=== PATIENT | female | born 1980 | race Caucasian/White ===

== ENCOUNTER 2025-01-28 06:59 | Day surgery (SDC) | payer OTHER, SELFPAY ==
[2025-01-12 15:00] VITALS: BMI 26.5
--- OUTSIDE RECORDS SUMMARY | 2025-01-28 07:33 | XMS_ITS | Encounter Summary ---
Author Organization [facility] Address [address] [place] [address] Care Team Providers Care Job Printer Apprentice Name Role Phone Isidro Swan MD Primary Care Provider [phone] Encounter Details Date Type Department Care Team (Late st Contact Info) Description 02/06/2003 [facility] [address] [place] [phone] Isaías Nj DO NO ADDRESS ON FILE Social History Tobacco Use Types Packs/Day Years Used Date Smoking Tobacco: Never Assessed Comments Unknown Sex and Gender Information Value Date Recorded Sex Assigned at Not on file Legal Sex Female 7:43 AM LICENSING WORKER Gender Identity Not on file Sexual Orientation Not on file documented as of this encounter Plan of Treatment Not on file documented as of this encounter Visit Diagnoses Not on filedocumented in this encounter Additional Health Concerns Infection Onset Date Last Indicated Resolved Time R/O COVID-19 11/30/2019 11/30/2019 03/20/2020 11:3 7 AM LICENSING WORKER documented as of this encounter Care Teams Job Printer Apprentice Relationship Specialty Start Date End Date Isidro Swan MD [address] [place] [address] [phone] PCP - General Family Practice 02/17/19 documented as of this encounter
--- OUTSIDE RECORDS SUMMARY | 2025-01-28 07:33 | XMS_ITS | Encounter Summary ---
Author Organization [facility] Address [address] [place] [address] Care Team Providers Care Mold Puller Name Role Phone Isidro Swan MD Primary Care Provider [phone] Encounter Details Date Type Department Care Team (Late st Contact Info) Description 12/01/2002 [facility] [address] [place] [address] [phone] Isaías Nj DO NO ADDRESS ON FILE Social History Tobacco Use Types Packs/Day Years Used Date Smoking Tobacco: Never Assessed Comments Unknown Sex and Gender Information Value Date Recorded Sex Assigned at Not on file Legal Sex Female 7:43 AM DAIRY SCIENCE TEACHER Gender Identity Not on file Sexual Orientation Not on file documented as of this encounter Plan of Treatment Not on file documented as of this encounter Visit Diagnoses Not on filedocumented in this encounter Additional Health Concerns Infection Onset Date Last Indicated Resolved Time R/O COVID-19 11/30/2019 11/30/2019 03/20/2020 11:3 7 AM DAIRY SCIENCE TEACHER documented as of this encounter Care Teams Mold Puller Relationship Specialty Start Date End Date Isidro Swan MD [address] [place] [address] [phone] PCP - General Family Practice 02/17/19 documented as of this encounter
--- OUTSIDE RECORDS SUMMARY | 2025-01-28 07:33 | XMS_ITS | Encounter Summary ---
Author Organization [facility] Address [address] [place] [address] Care Team Providers Care Asian Studies Professor Name Role Phone Isidro Swan MD Primary Care Provider [phone] Encounter Details Date Type Department Care Team (Late st Contact Info) Description 05/02/2002 [facility] [address] [place] [address] [phone] Isaías Nj DO NO ADDRESS ON FILE Social History Tobacco Use Types Packs/Day Years Used Date Smoking Tobacco: Never Assessed Comments Unknown Sex and Gender Information Value Date Recorded Sex Assigned at Not on file Legal Sex Female 7:43 AM HOSPICE CLINICAL MARKETER Gender Identity Not on file Sexual Orientation Not on file documented as of this encounter Plan of Treatment Not on file documented as of this encounter Visit Diagnoses Not on filedocumented in this encounter Additional Health Concerns Infection Onset Date Last Indicated Resolved Time R/O COVID-19 11/30/2019 11/30/2019 03/20/2020 11:3 7 AM HOSPICE CLINICAL MARKETER documented as of this encounter Care Teams Asian Studies Professor Relationship Specialty Start Date End Date Isidro Swan MD [address] [place] [address] [phone] PCP - General Family Practice 02/17/19 documented as of this encounter
--- OUTSIDE RECORDS SUMMARY | 2025-01-28 07:34 | XMS_ITS | Encounter Summary ---
Author Organization [facility] Address [address] [place] [address] Care Team Providers Care Events Administrative Assistant Name Role Phone Isidro Swan MD Primary Care Provider [phone] Encounter Details Date Type Department Care Team (Latest Contact Info) Description 05/01/2006 Outpatient Historical [facility] [place] [place] GRITTING MACHINE OPERATOR [address] [place] [address] Bryson Wade MD NO ADDRESS ON FILE Routine Medical Exam (Primary Dx); Routine Gynecological Examination Social History Tobacco Use Types Packs/Day Years Used Date Smoking Tobacco: Never Assessed Comments Unknown Sex and Gender Information Value Date Recorded Sex Assigned at Not on file Legal Sex Female 3:02 AM MARKETING TECHNOLOGY COORDINATOR Gender Identity Not on file Sexual Orientation Not on file documented as of this encounter Plan of Treatment Not on file documented as of this encounter Visit Diagnoses Diagnosis Routine medical exam- Primary Routine general medical examination at a health care facility Routine gynecological examination documented in this encounter Additional Health Concerns Infection Onset Date Last Indicated Resolved Time R/O COVID-19 11/30/2019 11/30/2019 03/20/2020 11:3 7 AM MARKETING TECHNOLOGY COORDINATOR documented as of this encounter Care Teams Events Administrative Assistant Relationship Specialty Start Date End Date Isidro Swan MD [address] [place] [phone] PCP - General Family Practice 02/17/19 documented as of this encounter
--- OUTSIDE RECORDS SUMMARY | 2025-01-28 07:34 | XMS_ITS | Encounter Summary ---
Author Organization [facility] Address [address] [place] [address] Care Team Providers Care Art Education Professor Name Role Phone Isidro Swan MD Primary Care Provider [phone] Encounter Details Date Type Department Care Team (Latest Contact Info) Description 03/12/2005 Outpatient Historical [facility] DIRECTOR MOBILE MEDIA SOLUTIONS [address] [place] [address] Bryson Wade MD NO ADDRESS ON FILE Routine medical exam (Primary Dx); SCREENING MAL NEOP-CERVIX Social History Tobacco Use Types Packs/Day Years Used Date Smoking Tobacco: Never Assessed Comments Unknown Sex and Gender Information Value Date Recorded Sex Assigned at Not on file Legal Sex Female 3:02 AM NURSE TRANSPLANT Gender Identity Not on file Sexual Orientation Not on file documented as of this encounter Plan of Treatment Not on file documented as of this encounter Visit Diagnoses Diagnosis Routine medical exam- Primary Routine general medical examination at a health care facility Screening for malignant neoplasm of the cervix documented in this encounter Additional Health Concerns Infection Onset Date Last Indicated Resolved Time R/O COVID-19 11/30/2019 11/30/2019 03/20/2020 11:3 7 AM NURSE TRANSPLANT documented as of this encounter Care Teams Art Education Professor Relationship Specialty Start Date End Date Isidro Swan MD [facility] [address] [place] [phone] PCP - General Family Practice 02/17/19 documented as of this encounter
--- OUTSIDE RECORDS SUMMARY | 2025-01-28 07:34 | XMS_ITS | Encounter Summary ---
Author Organization [facility] Address [address] [place] [address] Care Team Providers Care Security Incident Response Specialist Name Role Phone Isidro Swan MD Primary Care Provider [phone] Encounter Details Date Type Department Care Team (Late st Contact Info) Description 11/15/1998 [facility] [address] [place] [address] [phone] Isaías Nj DO NO ADDRESS ON FILE Social History Tobacco Use Types Packs/Day Years Used Date Smoking Tobacco: Never Assessed Comments Unknown Sex and Gender Information Value Date Recorded Sex Assigned at Not on file Legal Sex Female 7:43 AM MANAGER RESPIRATORY CARE Gender Identity Not on file Sexual Orientation Not on file documented as of this encounter Plan of Treatment Not on file documented as of this encounter Visit Diagnoses Not on filedocumented in this encounter Additional Health Concerns Infection Onset Date Last Indicated Resolved Time R/O COVID-19 11/30/2019 11/30/2019 03/20/2020 11:3 7 AM MANAGER RESPIRATORY CARE documented as of this encounter Care Teams Security Incident Response Specialist Relationship Specialty Start Date End Date Isidro Swan MD [address] [place] [phone] PCP - General Family Practice 02/17/19 documented as of this encounter
--- OUTSIDE RECORDS SUMMARY | 2025-01-28 07:34 | XMS_ITS | Encounter Summary ---
Author Organization [facility] Address [address] [place] [address] Care Team Providers Care Tile Grinder Name Role Phone Isidro Swan MD Primary Care Provider [phone] Encounter Details Date Type Department Care Team (Late st Contact Info) Description 2003 Outpatient Historical [facility] Jill Rousseau, INFORMATION SYSTEMS ANALYST [address] [address] Social History Tobacco Use Types Packs/Day Years Used Date Smoking Tobacco: Never Assessed Comments Unknown Sex and Gender Information Value Date Recorded Sex Assigned at Not on file Legal Sex Female 3:02 AM DRY SANDER Gender Identity Not on file Sexual Orientation Not on file documented as of this encounter Plan of Treatment Not on file documented as of this encounter Visit Diagnoses Not on filedocumented in this encounter Additional Health Concerns Infection Onset Date Last Indicated Resolved Time R/O COVID-19 11/30/2019 11/30/2019 03/20/2020 11:3 7 AM DRY SANDER documented as of this encounter Care Teams Tile Grinder Relationship Specialty Start Date End Date Isidro Swan MD [address] [place] [phone] PCP - General Family Practice 02/17/19 documented as of this encounter
--- OUTSIDE RECORDS SUMMARY | 2025-01-28 07:34 | XMS_ITS | Encounter Summary ---
Author Organization [facility] Address [address] [place] [address] Care Team Providers Care Mica Washer Gluer Name Role Phone Isidro Swan MD Primary Care Provider [phone] Encounter Details Date Type Department Care Team (Late st Contact Info) Description 05/14/2005 Outpatient Historical [facility] [address] [place] [address] Og Rodriguez, DO [address] [place] [address] MALAISE AND FATIGUE NEC (Primary Dx) Social History Tobacco Use Types Packs/Day Years Used Date Smoking Tobacco: Never Assessed Comments Unknown Sex and Gender Information Value Date Recorded Sex Assigned at Not on file Legal Sex Female 3:02 AM AUTOMATED MANUFACTURING INSTRUCTOR Gender Identity Not on file Sexual Orientation Not on file documented as of this encounter Plan of Treatment Not on file documented as of this encounter Visit Diagnoses Diagnosis Other malaise and fatigue- Primary documented in this encounter Additional Health Concerns Infection Onset Date Last Indicated Resolved Time R/O COVID-19 11/30/2019 11/30/2019 03/20/2020 11:3 7 AM AUTOMATED MANUFACTURING INSTRUCTOR documented as of this encounter Care Teams Mica Washer Gluer Relationship Specialty Start Date End Date Isidro Swan MD [address] [place] [phone] PCP - General Family Practice 02/17/19 documented as of this encounter
--- OUTSIDE RECORDS SUMMARY | 2025-01-28 07:34 | XMS_ITS | Encounter Summary ---
Author Organization [facility] Address [address] [place] [address] Care Team Providers Care Overnight Associate Name Role Phone Isidro Swan MD Primary Care Provider [phone] Encounter Details Date Type Department Care Team (Late st Contact Info) Description 02/11/2000 [facility] [address] [place] [address] [phone] Isaías Nj DO NO ADDRESS ON FILE Social History Tobacco Use Types Packs/Day Years Used Date Smoking Tobacco: Never Assessed Comments Unknown Sex and Gender Information Value Date Recorded Sex Assigned at Not on file Legal Sex Female 7:43 AM IT APPLICATIONS DEVELOPER Gender Identity Not on file Sexual Orientation Not on file documented as of this encounter Plan of Treatment Not on file documented as of this encounter Visit Diagnoses Not on filedocumented in this encounter Additional Health Concerns Infection Onset Date Last Indicated Resolved Time R/O COVID-19 11/30/2019 11/30/2019 03/20/2020 11:3 7 AM IT APPLICATIONS DEVELOPER documented as of this encounter Care Teams Overnight Associate Relationship Specialty Start Date End Date Isidro Swan MD [address] [place] [phone] PCP - General Family Practice 02/17/19 documented as of this encounter
--- OUTSIDE RECORDS SUMMARY | 2025-01-28 07:34 | XMS_ITS | Encounter Summary ---
Author Organization [facility] Address [address] [place] [address] Care Team Providers Care Die Developer Name Role Phone Isidro Swan MD Primary Care Provider [phone] Encounter Details Date Type Department Care Team (Late st Contact Info) Description 12/11/2005 Outpatient Historical [facility] [address] [place] [address] Og Rodriguez, [address] [place] [address] Depressive Disorder, not Elsewhere Classified (Primary Dx); Unspecified Iron Deficiency Anemia Social History Tobacco Use Types Packs/Day Years Used Date Smoking Tobacco: Never Assessed Comments Unknown Sex and Gender Information Value Date Recorded Sex Assigned at Not on file Legal Sex Female 3:02 AM LARRY CAR OPERATOR Gender Identity Not on file Sexual Orientation Not on file documented as of this encounter Plan of Treatment Not on file documented as of this encounter Visit Diagnoses Diagnosis Depressive disorder, not elsewhere classified- Primary Iron deficiency anemia, unspecified documented in this encounter Additional Health Concerns Infection Onset Date Last Indicated Resolved Time R/O COVID-19 11/30/2019 11/30/2019 03/20/2020 11:3 7 AM LARRY CAR OPERATOR documented as of this encounter Care Teams Die Developer Relationship Specialty Start Date End Date Isidro Swan MD [address] [place] [address] [phone] PCP - General Family Practice 02/17/19 documented as of this encounter
--- OUTSIDE RECORDS SUMMARY | 2025-01-28 07:34 | XMS_ITS | Clinical Summary ---
Author Organization [facility] [address] Address [address] [place] [address] Care Team Providers Care Roll Or Tape Edge Machine Operator Name Role Phone Isidro Swan MD Primary Care Provider [phone] Allergies No known active allergies Medications levothyroxine 100 mcg tablet Take 100 mcg by mouth daily routeman. Active valACYclovir (VALTREX) 1 gram tablet Take 2,000 mg by mouth 2 times daily as needed. 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 30 Capsule 6 02/28/2019 Active LORazepam (ATIVAN) 0.5 mg tabletIndicatio ns:RAJAT (generalized anxiety disorder) TAKE 1 TABLET(0.5 MG) BY MOUTH EVERY 8 HOURS NEEDED FOR ANXIETY 50 Tablet 03/21/2019 Active Active Problems Problem Noted Date Diagnosed Date Hypothyroidism 03/01/2019 Overview (03/01/2019): Historical documentation from [facility] Hypercholesteremia 03/01/2019 Overview (03/01/2019): Historical documentation from [facility] Vitamin D deficiency 03/01/2019 Overview (03/01/2019): Historical documentation from [facility] Panic attacks 03/01/2019 Overview (03/01/2019): Historical documentation from [facility] Obesity (BMI 30.0-34.9) 03/01/2019 Overview (03/01/2019): Historical documentation from [facility] Anxiety and depression 03/01/2019 Overview (03/01/2019): Historical documentation from [facility] 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 Overview (03/01/2019): Historical documentation from [facility] Acute appendicitis 02/13/2009 Immunizations Immunization Administration Dates Next Due (ADACEL/BOOSTRIX)(10 YR UP) TDAP VACCINE, 0.5ML, IM 08/20/2009 (M-M-R II/PRIORIX)(12 MO UP) MEASLES, MUMPS AND RUBELLA VIRUS VACCINE, 0.5 ML IM/SUBCUT 11/25/2012,10/19/2012 (VARIVAX)(12 MOS UP)VARICELL A VIRUS VACCINE (PF) 0.5 ML, SUB CUT 11/25/2012 Hepatitis B Vaccine 04/21/2013, 3,11/25/2012,2012 Influenza Seasonal Unspecifi ed Formulation IM 01/20/2019,01/11/2016,01/09/2014,2012 Family History Medical History Relation Name Comments Healthy Brother Healthy Daughter Healthy Father Liver Disease Maternal Grandfather Healthy Maternal Grandmother Healthy Mother Diabetes Paternal Grandfather Thyroid Disease Paternal Grandmother Healthy Sister Healthy Son Relation Name Status Comments Brother Alive Daughter Alive Father Alive Maternal Grandfather Maternal Grandmother Alive Mother Alive Paternal Grandfather Alive Paternal Grandmother Alive Sister Alive Son Alive Social History Tobacco Use Types Packs/Day Years Used Date Smoking Tobacco: Never Smokeless Tobacco: Never Alcohol Use Standard Drinks/Week Comments Yes 0 (1 standard drink = 0.6 oz pur e alcohol) rarely Comments No Sex and Gender Information Value Date Recorded Sex Assigned at Not on file Legal Sex Female 3:02 AM SCHEDULE SUPERVISOR Gender Identity Not on file Sexual Orientation Not on file Last Filed Vital Signs Vital Sign Reading Time Taken Comments Blood Pressure 130/82 02/17/2019 1:56 PM SCHEDULE SUPERVISOR Pulse 85 02/17/2019 1:56 PM SCHEDULE SUPERVISOR Temperature 37.6 C (99.6 F) 02/14/2009 10:21 AM SCHEDULE SUPERVISOR Respiratory Rate 16 02/14/2009 10:21 AM SCHEDULE SUPERVISOR Oxygen Saturation 98% 02/17/2019 1:56 PM SCHEDULE SUPERVISOR Inhaled Oxygen Concentration - - Weight 97.2 kg (214 lb 3.2 oz) 02/17/2019 1:56 P M SCHEDULE SUPERVISOR Height 161.3 cm (5' 3.5) 02/17/2019 1:56 PM SCHEDULE SUPERVISOR Body Mass Index 37.35 02/17/2019 1:56 PM SCHEDULE SUPERVISOR Plan of Treatment Health Maintenance Due Date Last Done Comments HEPATITIS B VACCINES (1 of 3 - 19+ 3-dose series) 1997 04/21/2013, 03/15/2013, 11/25/2012, Additional history exists HPV/Cotest (21-29) 12/13/1999 HPV/Cotest (30-65) 2008 CERVICAL CANCER SCREENING 05/01/2009 PAP SMEAR 05/01/2009 05/01/2006, 03/12/2005 BREAST CANCER SCREENING 2018 DTAP/TDAP/TD VACCINES (2 - Td or Tdap) 08/21/2019 08/20/2009 COLORECTAL SCREENING 12/13/2023 Colorectal Cancer Screening 12/13/2023 FIT-DNA Q 3 years 12/13/2023 FIT/FOBT Q 1 year 12/13/2023 Flex Sig/CT Colonography Q 5 years 12/13/2023 Preventative Visit- Commercial 03/30/2024 05/01/2006, 03/12/2005 INFLUENZA VACCINE (#1) 2024 9, 01/11/2016, 01/09/2014, Additional history exists HPV VACCINES Aged Out No longer eligi ble based on patient's age to complete this topic Insurance [facility] BS Advance Directives For more information, please contact: [phone] * Full Code (Latest Code Status on File) Date Activated Date Inactivated Comments 02/13/2009 6:46 PM 02/14/2009 5:09 PM Care Teams Roll Or Tape Edge Machine Operator Relationship Specialty Start Date End Date Isidro Swan MD [address] [place] [phone] PCP - General Family Practice 02/17/19
--- OUTSIDE RECORDS SUMMARY | 2025-01-28 07:34 | XMS_ITS | Encounter Summary ---
Author Organization [facility] Address [address] [place] [address] Care Team Providers Care Data Processing Supervisor Name Role Phone Isidro Swan MD Primary Care Provider [phone] Encounter Details Date Type Department Care Team (Late st Contact Info) Description 05/01/2006 Outpatient Historical [facility] Bryson Wade MD NO ADDRESS ON FILE Social History Tobacco Use Types Packs/Day Years Used Date Smoking Tobacco: Never Assessed Comments Unknown Sex and Gender Information Value Date Recorded Sex Assigned at Not on file Legal Sex Female 3:02 AM IT CONSULTING DIRECTOR Gender Identity Not on file Sexual Orientation Not on file documented as of this encounter Plan of Treatment Not on file documented as of this encounter Visit Diagnoses Not on filedocumented in this encounter Additional Health Concerns Infection Onset Date Last Indicated Resolved Time R/O COVID-19 11/30/2019 11/30/2019 03/20/2020 11:3 7 AM IT CONSULTING DIRECTOR documented as of this encounter Care Teams Data Processing Supervisor Relationship Specialty Start Date End Date Isidro Swan MD [facility] [address] [place] [phone] PCP - General Family Practice 02/17/19 documented as of this encounter
--- OUTSIDE RECORDS SUMMARY | 2025-01-28 07:34 | XMS_ITS | Encounter Summary ---
Author Organization [facility] Address [address] [place] [address] Care Team Providers Care Title Curator Name Role Phone Isidro Swan MD Primary Care Provider Encounter Details Date Type Department Care Team (Late st Contact Info) Description 12/23/1999 [facility] [address] [place] [address] [phone] Isaías Nj DO NO ADDRESS ON FILE Social History Tobacco Use Types Packs/Day Years Used Date Smoking Tobacco: Never Assessed Comments Unknown Sex and Gender Information Value Date Recorded Sex Assigned at Not on file Legal Sex Female 7:43 AM RECORDINGS LIBRARIAN Gender Identity Not on file Sexual Orientation Not on file documented as of this encounter Plan of Treatment Not on file documented as of this encounter Visit Diagnoses Not on filedocumented in this encounter Additional Health Concerns Infection Onset Date Last Indicated Resolved Time R/O COVID-19 11/30/2019 11/30/2019 03/20/2020 11:3 7 AM RECORDINGS LIBRARIAN documented as of this encounter Care Teams Title Curator Relationship Specialty Start Date End Date Isidro Swan MD [address] [place] [phone] PCP - General Family Practice 02/17/19 documented as of this encounter
--- OUTSIDE RECORDS SUMMARY | 2025-01-28 07:34 | XMS_ITS | Encounter Summary ---
Author Organization [facility] Address [address] [place] [address] Care Team Providers Care Newspaper Stuffer Name Role Phone Isidro Swan MD Primary Care Provider [phone] Encounter Details Date Type Department Care Team (Late st Contact Info) Description 10/17/1999 [facility] [address] [place] [phone] Isaías Nj DO NO ADDRESS ON FILE Social History Tobacco Use Types Packs/Day Years Used Date Smoking Tobacco: Never Assessed Comments Unknown Sex and Gender Information Value Date Recorded Sex Assigned at Not on file Legal Sex Female 7:43 AM SPORTS PSYCHOLOGIST Gender Identity Not on file Sexual Orientation Not on file documented as of this encounter Plan of Treatment Not on file documented as of this encounter Visit Diagnoses Not on filedocumented in this encounter Additional Health Concerns Infection Onset Date Last Indicated Resolved Time R/O COVID-19 11/30/2019 11/30/2019 03/20/2020 11:3 7 AM SPORTS PSYCHOLOGIST documented as of this encounter Care Teams Newspaper Stuffer Relationship Specialty Start Date End Date Isidro Swan MD [address] [place] [phone] PCP - General Family Practice 02/17/19 documented as of this encounter
--- OUTSIDE RECORDS SUMMARY | 2025-01-28 07:34 | XMS_ITS | Encounter Summary ---
Author Organization [facility] Address [address] [place] [address] Care Team Providers Care Box Tender Name Role Phone Isidro Swan MD Primary Care Provider [phone] Encounter Details Date Type Department Care Team (Late st Contact Info) Description 05/27/2001 [facility] [address] [place] [phone] Isaías Nj DO NO ADDRESS ON FILE Social History Tobacco Use Types Packs/Day Years Used Date Smoking Tobacco: Never Assessed Comments Unknown Sex and Gender Information Value Date Recorded Sex Assigned at Not on file Legal Sex Female 7:43 AM MODULAR HOME CREW MEMBER Gender Identity Not on file Sexual Orientation Not on file documented as of this encounter Plan of Treatment Not on file documented as of this encounter Visit Diagnoses Not on filedocumented in this encounter Additional Health Concerns Infection Onset Date Last Indicated Resolved Time R/O COVID-19 11/30/2019 11/30/2019 03/20/2020 11:3 7 AM MODULAR HOME CREW MEMBER documented as of this encounter Care Teams Box Tender Relationship Specialty Start Date End Date Isidro Swan MD [address] [place] [phone] PCP - General Family Practice 02/17/19 documented as of this encounter
--- OUTSIDE RECORDS SUMMARY | 2025-01-28 07:34 | XMS_ITS | Encounter Summary ---
Author Organization [facility] Address [address] [place] [address] Care Team Providers Care Audio Production Manager Name Role Phone Isidro Swan MD Primary Care Provider [phone] Encounter Details Date Type Department Care Team (Late st Contact Info) Description 03/12/2005 Outpatient Historical [facility] Bryson Wade MD NO ADDRESS ON FILE Social History Tobacco Use Types Packs/Day Years Used Date Smoking Tobacco: Never Assessed Comments Unknown Sex and Gender Information Value Date Recorded Sex Assigned at Not on file Legal Sex Female 3:02 AM PROFILER HAND Gender Identity Not on file Sexual Orientation Not on file documented as of this encounter Plan of Treatment Not on file documented as of this encounter Visit Diagnoses Not on filedocumented in this encounter Additional Health Concerns Infection Onset Date Last Indicated Resolved Time R/O COVID-19 11/30/2019 11/30/2019 03/20/2020 11:3 7 AM PROFILER HAND documented as of this encounter Care Teams Audio Production Manager Relationship Specialty Start Date End Date Isidro Swan MD [facility] [address] [phone] PCP - General Family Practice 02/17/19 documented as of this encounter
--- OUTSIDE RECORDS SUMMARY | 2025-01-28 07:34 | XMS_ITS | Clinical Summary ---
Author Organization [facility] Address [address] [place] [address] Care Team Providers Care Emergency Detail Driver Name Role Phone Isidro Swan MD Primary Care Provider [phone] Allergies No known active allergies Active Problems Problem Noted Date Diagnosed Date Hypothyroidism 03/01/2019 Overview (10/03/2020): Historical documentation from [facility] Hypercholesteremia 03/01/2019 Overview (10/03/2020): Historical documentation from [facility] Vitamin D deficiency 03/01/2019 Overview (10/03/2020): Historical documentation from [facility] Panic attacks 03/01/2019 Overview (10/03/2020): Historical documentation from [facility] Obesity (BMI 30.0-34.9) 03/01/2019 Overview (10/03/2020): Historical documentation from [facility] Anxiety and depression 03/01/2019 Overview (10/03/2020): Historical documentation from [facility] 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 Overview (10/03/2020): Historical documentation from [facility] Acute appendicitis 02/13/2009 Immunizations Immunization Administration Dates [...] drink = 0.6 oz pur e alcohol) Comments Unknown Sex and Gender Information Value Date Recorded Sex Assigned at Not on file Legal Sex Female 7:43 AM YOGA COORDINATOR Gender Identity Not on file Sexual Orientation Not on file Last Filed Vital Signs Vital Sign Reading Time Taken Comments Blood Pressure 130/82 02/17/2019 1:56 PM YOGA COORDINATOR Pulse 85 02/17/2019 1:56 PM YOGA COORDINATOR Temperature - - Respiratory Rate - - Oxygen Saturation - - Inhaled Oxygen Concentration - - Weight 97.2 kg (214 lb 3.2 oz) 02/17/2019 1:56 P M YOGA COORDINATOR Height 161.3 cm (5' 3.5) 02/17/2019 1:56 PM CS T Body Mass Index 37.35 02/17/2019 1:56 PM YOGA COORDINATOR Plan of Treatment Health Maintenance Due Date Last Done Comments HEPATITIS B VACCINES (1 of 3 - 19+ 3-dose series) 1997 04/21/2013, 03/15/2013, 11/25/2012, Additional history exists HPV/Cotest (21-29) 12/13/1999 CERVICAL CANCER SCREENING 2008 HPV/Cotest (30-65) 2008 PAP SMEAR 2008 BREAST CANCER SCREENING 2018 DTAP/TDAP/TD VACCINES (2 - Td or Tdap) 08/21/2019 08/20/2009 COLORECTAL SCREENING 12/13/2023 Colorectal Cancer Screening 12/13/2023 FIT-DNA Q 3 years 12/13/2023 FIT/FOBT Q 1 year 12/13/2023 Flex Sig/CT Colonography Q 5 years 12/13/2023 INFLUENZA VACCINE (#1) 2024 9, 01/11/2016, 01/09/2014, Additional history exists HPV VACCINES Aged Out No longer eligi ble based on patient's age to complete this topic Care Teams Emergency Detail Driver Relationship Specialty Start Date End Date Isidro Swan MD [facility] [address] [place] [phone] PCP - General Family Practice 02/17/19
--- OUTSIDE RECORDS SUMMARY | 2025-01-28 07:34 | XMS_ITS | Encounter Summary ---
Author Organization [facility] Address [address] [place] [address] Care Team Providers Care Wood Cutter Name Role Phone Isidro Swan MD Primary Care Provider [phone] Encounter Details Date Type Department Care Team (Late st Contact Info) Description 05/18/2006 Outpatient Historical [facility] Family Medicine [address] [place] [address] Og Rodriguez, DO [address] [place] [address] Acute Pharyngitis (Primary Dx) Social History Tobacco Use Types Packs/Day Years Used Date Smoking Tobacco: Never Assessed Comments Unknown Sex and Gender Information Value Date Recorded Sex Assigned at Not on file Legal Sex Female 3:02 AM VAMP LINER Gender Identity Not on file Sexual Orientation Not on file documented as of this encounter Plan of Treatment Not on file documented as of this encounter Visit Diagnoses Diagnosis Acute pharyngitis- Primary documented in this encounter Additional Health Concerns Infection Onset Date Last Indicated Resolved Time R/O COVID-19 11/30/2019 11/30/2019 03/20/2020 11:3 7 AM VAMP LINER documented as of this encounter Care Teams Wood Cutter Relationship Specialty Start Date End Date Isidro Swan MD [address] [place] [address] [phone] PCP - General Family Practice 02/17/19 documented as of this encounter
--- OUTSIDE RECORDS SUMMARY | 2025-01-28 07:34 | XMS_ITS | Encounter Summary ---
Author Organization [facility] Address [address] [place] [address] Care Team Providers Care Software Tester Name Role Phone Isidro Swan MD Primary Care Provider [phone] Encounter Details Date Type Department Care Team (Late st Contact Info) Description 11/08/2005 Outpatient Historical [facility] [place] [address] [place] [address] Solo Abrams, SCREW EYE ASSEMBLER [address] [address] Cellulitis and Abscess of Hand, except Fingers and Thumb (Primary Dx) Social History Tobacco Use Types Packs/Day Years Used Date Smoking Tobacco: Never Assessed Comments Unknown Sex and Gender Information Value Date Recorded Sex Assigned at Not on file Legal Sex Female 3:02 AM CELL TUBER MACHINE Gender Identity Not on file Sexual Orientation Not on file documented as of this encounter Plan of Treatment Not on file documented as of this encounter Visit Diagnoses Diagnosis Cellulitis and abscess of hand, except fingers and thumb- Primary documented in this encounter Additional Health Concerns Infection Onset Date Last Indicated Resolved Time R/O COVID-19 11/30/2019 11/30/2019 03/20/2020 11:3 7 AM CELL TUBER MACHINE documented as of this encounter Care Teams Software Tester Relationship Specialty Start Date End Date Isidro Swan MD [address] [place] [phone] PCP - General Family Practice 02/17/19 documented as of this encounter
[2025-01-28 07:52] VITALS: BP 104/82; PULSE 77; RESP 18; TEMP 36.9; O2SAT 98; BMI 25.9
--- NOTE | 2025-01-28 07:58 | WPDANESEPPF ---
Anes - Initial Pre Proc Eval Procedure: Operation Date: 01/28/25 09:00 Proposed Procedures p Screening Colonoscopy - Flaquito Quarles MD Date/Time: 01/28/25 07:58 Surgeon: Flaquito Quarles MD Pre Op Diagnosis: Screening Patient Data Age: 44 Gender: F Height: 1.6 m Weight: 66.5 kg Last Vital Signs Temp 98.5 F 01/28/25 07:52 Pulse 77 01/28/25 07:52 Resp 18 01/28/25 07:52 BP 104/82 01/28/25 07:52 Pulse Ox 98 01/28/25 07:52 O2 Del Method Room Air 01/28/25 07:52 Allergies Allergy/AdvReac Type Severity Reaction Status Date / Time No Known Allergies Allergy Verified 01/28/25 07:41 Home Medications ?Medication ?Instructions ?Recorded ?Confirmed ?Type alprazolam 1 mg tablet,extended 1 mg PO DAILY 01/12/25 01/28/25 History release 24 hr cyanocobalamin (vitamin B-12) 500 mcg PO DAILY 01/12/25 01/28/25 History 1,000 mcg tablet (Vitamin B-12) levothyroxine 75 mcg tablet 75 mcg PO DAILY 01/12/25 01/28/25 History metformin 500 mg tablet,extended 1,000 mg PO DAILY 01/12/25 01/28/25 History release 24 hr montelukast 10 mg tablet 10 mg PO DAILY 01/12/25 01/28/25 History (Singulair) naltrexone 1.5 mg capsule 4 mg PO DAILY 01/12/25 01/28/25 History omega 6-hwr-stc-fish oil 1,000 mg 1 cap PO DAILY 01/12/25 01/28/25 History (120 mg-180 mg) capsule (Fish Oil) thyroid (pork) 60 mg tablet (AUDIOLOGY DOCTOR 60 mg PO DAILY 01/12/25 01/28/25 History Thyroid) venlafaxine 75 mg capsule,extended 75 mg PO DAILY 01/12/25 01/28/25 History release 24 hr Patient hx anesthesia problems: none Family hx anesthesia problems: none Results Review: All pre-operative results and documents have been reviewed as part of the pre-operative evaluation. [facility] Social History Social History Smoking status: Never smoker Alcohol use details: TWICE A YEAR Substance use: current Substance use type: marijuana Other substance usage details: 3-4 XTIME/WEEK FOR SLEEP, GUMMIES Last use: 01-11-25 Living arrangements: with family Spiritual care concerns: No Anes - Eval Final PreProcedure Day of Procedure 01/28/25 07:58 Heart: regular rate and rhythm Lungs: clear to auscultation Airway: Mallampati scale class II Neurological: alert and oriented ASA classification: II Anesthetic plan: proceed Anesthesia type and monitoring: monitored anesthesia care Results Review: All pre-operative results and documents have been reviewed as part of the pre-operative evaluation. Informed Consent: The patient's anesthetic plan and its attendant risks and benefits were discussed with the patient/family/POA. Questions were solicited and answers provided to the satisfaction of the patient/family/POA.
[2025-01-28] MEDS: LACTATED RINGERS 1,000 ML 150 ML IV CONT (08:09)
--- NOTE | 2025-01-28 08:19 | WPDANESEPPF ---
Anes - Initial Pre Proc Eval Procedure: Operation Date: 01/28/25 09:00 Proposed Procedures p Screening Colonoscopy - Flaquito Quarles MD Date/Time: 01/28/25 08:19 Surgeon: Flaquito Quarles MD Pre Op Diagnosis: Screening Patient Data Age: 44 Gender: F Height: 1.6 m Weight: 66.5 kg Last Vital Signs Temp 98.5 F 01/28/25 07:52 Pulse 77 01/28/25 07:52 Resp 18 01/28/25 07:52 BP 104/82 01/28/25 07:52 Pulse Ox 98 01/28/25 07:52 O2 Del Method Room Air 01/28/25 07:52 Allergies Allergy/AdvReac Type Severity Reaction Status Date / Time No Known Allergies Allergy Verified 01/28/25 07:41 Home Medications ?Medication ?Instructions ?Recorded ?Confirmed ?Type alprazolam 1 mg tablet,extended 1 mg PO DAILY 01/12/25 01/28/25 History release 24 hr cyanocobalamin (vitamin B-12) 500 mcg PO DAILY 01/12/25 01/28/25 History 1,000 mcg tablet (Vitamin B-12) levothyroxine 75 mcg tablet 75 mcg PO DAILY 01/12/25 01/28/25 History metformin 500 mg tablet,extended 1,000 mg PO DAILY 01/12/25 01/28/25 History release 24 hr montelukast 10 mg tablet 10 mg PO DAILY 01/12/25 01/28/25 History (Singulair) naltrexone 1.5 mg capsule 4 mg PO DAILY 01/12/25 01/28/25 History omega 2-yhj-kjh-fish oil 1,000 mg 1 cap PO DAILY 01/12/25 01/28/25 History (120 mg-180 mg) capsule (Fish Oil) thyroid (pork) 60 mg tablet (LEAD PROCESS ENGINEER 60 mg PO DAILY 01/12/25 01/28/25 History Thyroid) venlafaxine 75 mg capsule,extended 75 mg PO DAILY 01/12/25 01/28/25 History release 24 hr Patient hx anesthesia problems: none Family hx anesthesia problems: none Results Review: All pre-operative results and documents have been reviewed as part of the pre-operative evaluation. [facility] Social History Social History Smoking status: Never smoker Alcohol use details: TWICE A YEAR Substance use: current Substance use type: marijuana Other substance usage details: 3-4 XTIME/WEEK FOR SLEEP, GUMMIES Last use: 01-11-25 Living arrangements: with family Spiritual care concerns: No Anes - Eval Final PreProcedure Day of Procedure 01/28/25 08:19 Heart: regular rate and rhythm Lungs: clear to auscultation Airway: Mallampati scale class II Neurological: alert and oriented Last oral intake: >/= 8 hours ASA classification: II Anesthetic plan: proceed Anesthesia type and monitoring: monitored anesthesia care Results Review: All pre-operative results and documents have been reviewed as part of the pre-operative evaluation. Informed Consent: The patient's anesthetic plan and its attendant risks and benefits were discussed with the patient/family/POA. Questions were solicited and answers provided to the satisfaction of the patient/family/POA.
--- NOTE | 2025-01-28 08:44 | PM.IMHP ---
H&P: HPI History of Present Illness Date/Time: 01/28/25 08:44 Chief Complaint: Screening colonoscopy Narrative: This is the patient's first colonoscopy. There are no GI symptoms and there is no family history of colorectal cancer. Review of Systems Review of Systems: All systems reviewed & are unremarkable except as noted in HPI and [facility] Social History Social History Smoking status: Never smoker Alcohol use details: TWICE A YEAR Substance use: current Substance use type: marijuana Other substance usage details: 3-4 XTIME/WEEK FOR SLEEP, GUMMIES Last use: 01-11-25 Living arrangements: with family Spiritual care concerns: No Meds Home Medications and Allergies Home Medications ?Medication ?Instructions ?Recorded ?Confirmed ?Type alprazolam 1 mg tablet,extended 1 mg PO DAILY 01/12/25 01/28/25 History release 24 hr cyanocobalamin (vitamin B-12) 500 mcg PO DAILY 01/12/25 01/28/25 History 1,000 mcg tablet (Vitamin B-12) levothyroxine 75 mcg tablet 75 mcg PO DAILY 01/12/25 01/28/25 History metformin 500 mg tablet,extended 1,000 mg PO DAILY 01/12/25 01/28/25 History release 24 hr montelukast 10 mg tablet 10 mg PO DAILY 01/12/25 01/28/25 History (Singulair) naltrexone 1.5 mg capsule 4 mg PO DAILY 01/12/25 01/28/25 History omega 0-foo-xzo-fish oil 1,000 mg 1 cap PO DAILY 01/12/25 01/28/25 History (120 mg-180 mg) capsule (Fish Oil) thyroid (pork) 60 mg tablet (TAPE CONTROL SKIN OR SPAR MILL OPERATOR 60 mg PO DAILY 01/12/25 01/28/25 History Thyroid) venlafaxine 75 mg capsule,extended 75 mg PO DAILY 01/12/25 01/28/25 History release 24 hr Allergies Allergy/AdvReac Type Severity Reaction Status Date / Time No Known Allergies Allergy Verified 01/28/25 07:41 Vital Signs Vital Signs - 24 hr 01/28/25 07:52 Temperature 98.5 F Pulse Rate 77 Respiratory Rate 18 Blood Pressure 104/82 Pulse Oximetry 98 Oxygen Delivery Room Air Exam Const: General: cooperative and healthy appearing Resp: Effort & Inspection: normal respiratory effort and able to speak in complete sentences Auscultation: clear to auscultation bilaterally Cardio: Rate: regular rate Rhythm: regular rhythm GI: Inspection: normal to inspection GI Palp: No No hepatosplenomegaly present Auscultation: normal bowel sounds Rectal Exam: deferred Skin: General skin exam: normal color Psych: Appearance: grossly normal Mental Status: mental status grossly normal Assessment and Plan Assessment and plan (1) Encounter for screening colonoscopy: Code(s): Z12.11 - Encounter for screening for malignant neoplasm of colon Status: Acute Assessment and Plan: The patient is deemed a good candidate for the procedure. Consent signed. Will proceed.
--- NOTE | 2025-01-28 09:08 | WPDANESPN ---
Anes - Prog Note Post-Op Date/Time: 01/28/25 09:08 Vital Signs: Last Vital Signs Temp 98.5 F 01/28/25 07:52 Pulse 77 01/28/25 07:52 Resp 18 01/28/25 07:52 BP 104/82 01/28/25 07:52 Pulse Ox 98 01/28/25 07:52 O2 Del Method Room Air 01/28/25 07:52 Pain Score (VAS): no Patient Feedback: Patient satisfied with anesthetic care.
[2025-01-28 09:11] VITALS: BP 85/57; PULSE 70; RESP 15; O2SAT 100
[2025-01-28 09:21] VITALS: BP 106/81; PULSE 73; RESP 14; O2SAT 100
[2025-01-28 09:31] VITALS: BP 106/92; PULSE 79; RESP 15; O2SAT 100
== END 2025-01-28 09:41 | disposition home or self-care (01) ==
PROVIDERS: Visit Provider Internal Medicine Gastroenterology
PROC: 0DJD8ZZ Inspection of Lower Intestinal Tract, Via Natural or Artificial Opening Endoscopic (ICD-10-PCS; CPT 45378; principal; 2025-01-28 09:00)
DX: Z12.11 Encounter for screening for malignant neoplasm of colon (principal); K62.1 Rectal polyp; K57.30 Diverticulosis of large intestine without perforation or abscess without bleeding; K64.8 Other hemorrhoids
CPT/HCPCS: 45385

== ENCOUNTER 2025-01-28 07:00 | Outpatient (NON) | payer OTHER, SELFPAY ==
--- NOTE | 2025-01-28 | S_PTH ---
PATIENT: Neha Skinner LOC: [facility] U#:[id number] AGE/SX: 44/F ROOM: RE01/28/[address]: Flaquito Quarles MD : 1980 BED: DIS: 01/31/2025 SPEC #: [id number] RECD: 01/31/25 11:41 STATUS: HEATH RELoki #: [id number] TIEN: 01/28/25 00:[address]: Flaquito Quarles DEPT: [facility] Surgical RECD BY: Zion Hui ENTERED: 01/31/25 11:42 SP TYPE: Surgical OTHR DR: UNKNOWN,DOCTOR Tissues: A - Rectal Polyp Procedures: Hematoxylin and Eosin Stain Gross and Microscopic Level 4
--- OUTSIDE RECORDS SUMMARY | 2025-01-31 12:00 | XMS_ITS | Encounter Summary ---
Author Organization [facility] Address [address] [place] [address] Care Team Providers Care Firer Low Pressure Name Role Phone Isidro Swan MD Primary Care Provider [phone] Encounter Details Date Type Department Care Team (Late st Contact Info) Description 02/06/2003 [facility] [address] [place] [phone] Isaías Nj DO NO ADDRESS ON FILE Social History Tobacco Use Types Packs/Day Years Used Date Smoking Tobacco: Never Assessed Comments Unknown Sex and Gender Information Value Date Recorded Sex Assigned at Not on file Legal Sex Female 7:43 AM MANAGEMENT INFORMATION SYSTEMS DIRECTOR Gender Identity Not on file Sexual Orientation Not on file documented as of this encounter Plan of Treatment Not on file documented as of this encounter Visit Diagnoses Not on filedocumented in this encounter Additional Health Concerns Infection Onset Date Last Indicated Resolved Time R/O COVID-19 11/30/2019 11/30/2019 03/20/2020 11:3 7 AM MANAGEMENT INFORMATION SYSTEMS DIRECTOR documented as of this encounter Care Teams Firer Low Pressure Relationship Specialty Start Date End Date Isidro Swan MD [address] [place] [phone] PCP - General Family Practice 02/17/19 documented as of this encounter
--- OUTSIDE RECORDS SUMMARY | 2025-01-31 12:00 | XMS_ITS | Encounter Summary ---
Author Organization [facility] Address [address] [place] [address] Care Team Providers Care Accounts Payable Administrator Name Role Phone Isidro Swan MD Primary Care Provider [phone] Encounter Details Date Type Department Care Team (Late st Contact Info) Description 12/29/2002 [facility] [address] [place] [phone] Isaías Nj DO NO ADDRESS ON FILE Social History Tobacco Use Types Packs/Day Years Used Date Smoking Tobacco: Never Assessed Comments Unknown Sex and Gender Information Value Date Recorded Sex Assigned at Not on file Legal Sex Female 7:43 AM VISITING PROFESSOR Gender Identity Not on file Sexual Orientation Not on file documented as of this encounter Plan of Treatment Not on file documented as of this encounter Visit Diagnoses Not on filedocumented in this encounter Additional Health Concerns Infection Onset Date Last Indicated Resolved Time R/O COVID-19 11/30/2019 11/30/2019 03/20/2020 11:3 7 AM VISITING PROFESSOR documented as of this encounter Care Teams Accounts Payable Administrator Relationship Specialty Start Date End Date Isidro Swan MD [address] [place] [address] [phone] PCP - General Family Practice 02/17/19 documented as of this encounter
--- OUTSIDE RECORDS SUMMARY | 2025-01-31 12:01 | XMS_ITS | Encounter Summary ---
Author Organization [facility] Address [address] [place] [address] Care Team Providers Care Medical Oncologist Name Role Phone Isidro Swan MD Primary Care Provider [phone] Encounter Details Date Type Department Care Team (Late st Contact Info) Description 05/27/2001 [facility] [address] [place] [phone] Isaías Nj DO NO ADDRESS ON FILE Social History Tobacco Use Types Packs/Day Years Used Date Smoking Tobacco: Never Assessed Comments Unknown Sex and Gender Information Value Date Recorded Sex Assigned at Not on file Legal Sex Female 7:43 AM OPEN DEVELOPER OPERATOR Gender Identity Not on file Sexual Orientation Not on file documented as of this encounter Plan of Treatment Not on file documented as of this encounter Visit Diagnoses Not on filedocumented in this encounter Additional Health Concerns Infection Onset Date Last Indicated Resolved Time R/O COVID-19 11/30/2019 11/30/2019 03/20/2020 11:3 7 AM OPEN DEVELOPER OPERATOR documented as of this encounter Care Teams Medical Oncologist Relationship Specialty Start Date End Date Isidro Swan MD [address] [place] [address] [phone] PCP - General Family Practice 02/17/19 documented as of this encounter
--- OUTSIDE RECORDS SUMMARY | 2025-01-31 12:01 | XMS_ITS | Encounter Summary ---
Author Organization [facility] Address [address] [place] [address] Care Team Providers Care Spine Surgeon Name Role Phone Isidro Swan MD Primary Care Provider [phone] Encounter Details Date Type Department Care Team (Late st Contact Info) Description 2003 Outpatient Historical [facility] Jill Rousseau, GRIEVANCE MANAGER [address] [address] Social History Tobacco Use Types Packs/Day Years Used Date Smoking Tobacco: Never Assessed Comments Unknown Sex and Gender Information Value Date Recorded Sex Assigned at Not on file Legal Sex Female 3:02 AM VAULT CLERK Gender Identity Not on file Sexual Orientation Not on file documented as of this encounter Plan of Treatment Not on file documented as of this encounter Visit Diagnoses Not on filedocumented in this encounter Additional Health Concerns Infection Onset Date Last Indicated Resolved Time R/O COVID-19 11/30/2019 11/30/2019 03/20/2020 11:3 7 AM VAULT CLERK documented as of this encounter Care Teams Spine Surgeon Relationship Specialty Start Date End Date Isidro Swan MD [address] [place] [phone] PCP - General Family Practice 02/17/19 documented as of this encounter
--- OUTSIDE RECORDS SUMMARY | 2025-01-31 12:01 | XMS_ITS | Encounter Summary ---
Author Organization [facility] Address [address] [place] [address] Care Team Providers Care Director Game Name Role Phone Isidro Swan MD Primary Care Provider [phone] Encounter Details Date Type Department Care Team (Late st Contact Info) Description 03/12/2005 Outpatient Historical [facility] Bryson Wade MD NO ADDRESS ON FILE Social History Tobacco Use Types Packs/Day Years Used Date Smoking Tobacco: Never Assessed Comments Unknown Sex and Gender Information Value Date Recorded Sex Assigned at Not on file Legal Sex Female 3:02 AM SALVATIONIST Gender Identity Not on file Sexual Orientation Not on file documented as of this encounter Plan of Treatment Not on file documented as of this encounter Visit Diagnoses Not on filedocumented in this encounter Additional Health Concerns Infection Onset Date Last Indicated Resolved Time R/O COVID-19 11/30/2019 11/30/2019 03/20/2020 11:3 7 AM SALVATIONIST documented as of this encounter Care Teams Director Game Relationship Specialty Start Date End Date Isidro Swan MD [facility] [address] [place] [phone] PCP - General Family Practice 02/17/19 documented as of this encounter
--- OUTSIDE RECORDS SUMMARY | 2025-01-31 12:01 | XMS_ITS | Encounter Summary ---
Author Organization [facility] Address [address] [place] [address] Care Team Providers Care Regional Cra Name Role Phone Isidro Swan MD Primary Care Provider [phone] Encounter Details Date Type Department Care Team (Late st Contact Info) Description 10/17/1999 [facility] [address] [place] [address] Isaías Nj DO NO ADDRESS ON FILE Social History Tobacco Use Types Packs/Day Years Used Date Smoking Tobacco: Never Assessed Comments Unknown Sex and Gender Information Value Date Recorded Sex Assigned at Not on file Legal Sex Female 7:43 AM BUSINESS SERVICES COORDINATOR Gender Identity Not on file Sexual Orientation Not on file documented as of this encounter Plan of Treatment Not on file documented as of this encounter Visit Diagnoses Not on filedocumented in this encounter Additional Health Concerns Infection Onset Date Last Indicated Resolved Time R/O COVID-19 11/30/2019 11/30/2019 03/20/2020 11:3 7 AM BUSINESS SERVICES COORDINATOR documented as of this encounter Care Teams Regional Cra Relationship Specialty Start Date End Date Isidro Swan MD [address] [place] [phone] PCP - General Family Practice 02/17/19 documented as of this encounter
--- OUTSIDE RECORDS SUMMARY | 2025-01-31 12:01 | XMS_ITS | Encounter Summary ---
Author Organization [facility] Address [address] [place] [address] Care Team Providers Care Elevator Builder Name Role Phone Isidro Swan MD Primary Care Provider [phone] Encounter Details Date Type Department Care Team (Late st Contact Info) Description 02/11/2000 [facility] [address] [place] [phone] Isaías Nj DO NO ADDRESS ON FILE Social History Tobacco Use Types Packs/Day Years Used Date Smoking Tobacco: Never Assessed Comments Unknown Sex and Gender Information Value Date Recorded Sex Assigned at Not on file Legal Sex Female 7:43 AM TERMINAL MAKE UP OPERATOR Gender Identity Not on file Sexual Orientation Not on file documented as of this encounter Plan of Treatment Not on file documented as of this encounter Visit Diagnoses Not on filedocumented in this encounter Additional Health Concerns Infection Onset Date Last Indicated Resolved Time R/O COVID-19 11/30/2019 11/30/2019 03/20/2020 11:3 7 AM TERMINAL MAKE UP OPERATOR documented as of this encounter Care Teams Elevator Builder Relationship Specialty Start Date End Date Isidro Swan MD [address] [place] [phone] PCP - General Family Practice 02/17/19 documented as of this encounter
--- OUTSIDE RECORDS SUMMARY | 2025-01-31 12:01 | XMS_ITS | Encounter Summary ---
Author Organization [facility] Address [address] [place] [address] Care Team Providers Care Stable Helper Name Role Phone Isidro Swan MD Primary Care Provider [phone] Encounter Details Date Type Department Care Team (Late st Contact Info) Description 12/01/2002 [facility] [address] [place] [address] [phone] Isaías Nj DO NO ADDRESS ON FILE Social History Tobacco Use Types Packs/Day Years Used Date Smoking Tobacco: Never Assessed Comments Unknown Sex and Gender Information Value Date Recorded Sex Assigned at Not on file Legal Sex Female 7:43 AM BRIDGE IRONWORKER HELPER Gender Identity Not on file Sexual Orientation Not on file documented as of this encounter Plan of Treatment Not on file documented as of this encounter Visit Diagnoses Not on filedocumented in this encounter Additional Health Concerns Infection Onset Date Last Indicated Resolved Time R/O COVID-19 11/30/2019 11/30/2019 03/20/2020 11:3 7 AM BRIDGE IRONWORKER HELPER documented as of this encounter Care Teams Stable Helper Relationship Specialty Start Date End Date Isidro Swan MD [address] [place] [phone] PCP - General Family Practice 02/17/19 documented as of this encounter
--- OUTSIDE RECORDS SUMMARY | 2025-01-31 12:01 | XMS_ITS | Encounter Summary ---
Author Organization [facility] Address [address] [place] [address] Care Team Providers Care Aviation Neuropsychologist Name Role Phone Isidro Swan MD Primary Care Provider [phone] Encounter Details Date Type Department Care Team (Late st Contact Info) Description 12/23/1999 [facility] [address] [place] [phone] Isaías Nj DO NO ADDRESS ON FILE Social History Tobacco Use Types Packs/Day Years Used Date Smoking Tobacco: Never Assessed Comments Unknown Sex and Gender Information Value Date Recorded Sex Assigned at Not on file Legal Sex Female 7:43 AM SADDLE AND SIDE WIRE STITCHER Gender Identity Not on file Sexual Orientation Not on file documented as of this encounter Plan of Treatment Not on file documented as of this encounter Visit Diagnoses Not on filedocumented in this encounter Additional Health Concerns Infection Onset Date Last Indicated Resolved Time R/O COVID-19 11/30/2019 11/30/2019 03/20/2020 11:3 7 AM SADDLE AND SIDE WIRE STITCHER documented as of this encounter Care Teams Aviation Neuropsychologist Relationship Specialty Start Date End Date Isidro Swan MD [address] [place] [phone] PCP - General Family Practice 02/17/19 documented as of this encounter
--- OUTSIDE RECORDS SUMMARY | 2025-01-31 12:01 | XMS_ITS | Encounter Summary ---
Author Organization [facility] Address [address] [place] [address] Care Team Providers Care Health Spa Manager Name Role Phone Isidro Swan MD Primary Care Provider [phone] Encounter Details Date Type Department Care Team (Late st Contact Info) Description 05/18/2006 Outpatient Historical [facility] Family Medicine [address] [place] [address] Og Rodriguez, DO [address] [place] [address] Acute Pharyngitis (Primary Dx) Social History Tobacco Use Types Packs/Day Years Used Date Smoking Tobacco: Never Assessed Comments Unknown Sex and Gender Information Value Date Recorded Sex Assigned at Not on file Legal Sex Female 3:02 AM CONSULTING SERVICES ASSOCIATE Gender Identity Not on file Sexual Orientation Not on file documented as of this encounter Plan of Treatment Not on file documented as of this encounter Visit Diagnoses Diagnosis Acute pharyngitis- Primary documented in this encounter Additional Health Concerns Infection Onset Date Last Indicated Resolved Time R/O COVID-19 11/30/2019 11/30/2019 03/20/2020 11:3 7 AM CONSULTING SERVICES ASSOCIATE documented as of this encounter Care Teams Health Spa Manager Relationship Specialty Start Date End Date Isidro Swan MD [address] [place] [phone] PCP - General Family Practice 02/17/19 documented as of this encounter
--- OUTSIDE RECORDS SUMMARY | 2025-01-31 12:01 | XMS_ITS | Encounter Summary ---
Author Organization [facility] Address [address] [place] [address] Care Team Providers Care Crown Pouncer Name Role Phone Isidro Swan MD Primary Care Provider [phone] Encounter Details Date Type Department Care Team (Late st Contact Info) Description 05/02/2002 [facility] [address] [place] [address] [phone] Isaías Nj DO NO ADDRESS ON FILE Social History Tobacco Use Types Packs/Day Years Used Date Smoking Tobacco: Never Assessed Comments Unknown Sex and Gender Information Value Date Recorded Sex Assigned at Not on file Legal Sex Female 7:43 AM BAND NAILER Gender Identity Not on file Sexual Orientation Not on file documented as of this encounter Plan of Treatment Not on file documented as of this encounter Visit Diagnoses Not on filedocumented in this encounter Additional Health Concerns Infection Onset Date Last Indicated Resolved Time R/O COVID-19 11/30/2019 11/30/2019 03/20/2020 11:3 7 AM BAND NAILER documented as of this encounter Care Teams Crown Pouncer Relationship Specialty Start Date End Date Isidro Swan MD [address] [place] [phone] PCP - General Family Practice 02/17/19 documented as of this encounter
--- OUTSIDE RECORDS SUMMARY | 2025-01-31 12:01 | XMS_ITS | Encounter Summary ---
Author Organization [facility] Address [address] [place] [address] Care Team Providers Care Gas Mask Assembler Name Role Phone Isidro Swan MD Primary Care Provider [phone] Encounter Details Date Type Department Care Team (Late st Contact Info) Description 11/15/1998 Outpatient Historical [facility] [address] [place] [address] [phone] Isaías Nj DO NO ADDRESS ON FILE Social History Tobacco Use Types Packs/Day Years Used Date Smoking Tobacco: Never Assessed Comments Unknown Sex and Gender Information Value Date Recorded Sex Assigned at Not on file Legal Sex Female 7:43 AM TENNIS BALL COVERER HAND Gender Identity Not on file Sexual Orientation Not on file documented as of this encounter Plan of Treatment Not on file documented as of this encounter Visit Diagnoses Not on filedocumented in this encounter Additional Health Concerns Infection Onset Date Last Indicated Resolved Time R/O COVID-19 11/30/2019 11/30/2019 03/20/2020 11:3 7 AM TENNIS BALL COVERER HAND documented as of this encounter Care Teams Gas Mask Assembler Relationship Specialty Start Date End Date Isidro Swan MD [address] [place] [phone] PCP - General Family Practice 02/17/19 documented as of this encounter
--- OUTSIDE RECORDS SUMMARY | 2025-01-31 12:01 | XMS_ITS | Clinical Summary ---
Author Organization [facility] [address] Address [address] [place] [address] Care Team Providers Care Log Driver Name Role Phone Isidro Swan MD Primary Care Provider [phone] Allergies No known active allergies Medications levothyroxine 100 mcg tablet Take 100 mcg by mouth daily food service specialist. Active valACYclovir (VALTREX) 1 gram tablet Take [...] Hypothyroidism 03/01/2019 Overview (03/01/2019): Historical documentation from [facility] Hypercholesteremia 03/01/2019 Overview (03/01/2019): Historical documentation from [facility] Vitamin D deficiency 03/01/2019 Overview (03/01/2019): Historical documentation from [facility] Panic attacks 03/01/2019 Overview (03/01/2019): Historical documentation from [facility] Obesity (BMI 30.0-34.9) 03/01/2019 Overview (03/01/2019): Historical documentation from [facility] Anxiety and depression 03/01/2019 Overview (03/01/2019): Historical documentation from [facility] 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 Overview (03/01/2019): Historical documentation from [facility] Acute appendicitis 02/13/2009 Immunizations Immunization Administration Dates [...] on file Legal Sex Female 3:02 AM VASCULAR MANAGER Gender Identity Not on file Sexual Orientation Not on file Last Filed Vital Signs Vital Sign Reading Time Taken Comments Blood Pressure 130/82 02/17/2019 1:56 PM VASCULAR MANAGER Pulse 85 02/17/2019 1:56 PM VASCULAR MANAGER Temperature 37.6 C (99.6 F) 02/14/2009 10:21 AM VASCULAR MANAGER Respiratory Rate 16 02/14/2009 10:21 AM VASCULAR MANAGER Oxygen Saturation 98% 02/17/2019 1:56 PM VASCULAR MANAGER Inhaled Oxygen Concentration - - Weight 97.2 kg (214 lb 3.2 oz) 02/17/2019 1:56 P M VASCULAR MANAGER Height 161.3 cm (5' 3.5) 02/17/2019 1:56 PM VASCULAR MANAGER Body Mass Index 37.35 02/17/2019 1:56 PM VASCULAR MANAGER Plan of Treatment Health Maintenance Due Date [...] patient's age to complete this topic Insurance [facility] BS Advance Directives For more information, please contact: [phone] * Full Code (Latest Code Status on File) Date Activated Date Inactivated Comments 02/13/2009 6:46 PM 02/14/2009 5:09 PM Care Teams Log Driver Relationship Specialty Start Date End Date Isidro Swan MD [address] [place] [phone] PCP - General Family Practice 02/17/19
--- OUTSIDE RECORDS SUMMARY | 2025-01-31 12:01 | XMS_ITS | Encounter Summary ---
Author Organization [facility] Address [address] [place] [address] Care Team Providers Care Stable Cleaner Name Role Phone Isidro Swan MD Primary Care Provider [phone] Encounter Details Date Type Department Care Team (Late st Contact Info) Description 05/14/[address] [facility] Family Medicine [address] [place] [address] Og Rodriguez, DO [address] [place] [address] MALAISE AND FATIGUE NEC (Primary Dx) Social History Tobacco Use Types Packs/Day Years Used Date Smoking Tobacco: Never Assessed Comments Unknown Sex and Gender Information Value Date Recorded Sex Assigned at Not on file Legal Sex Female 3:02 AM SYSTEMS DEVELOPER Gender Identity Not on file Sexual Orientation Not on file documented as of this encounter Plan of Treatment Not on file documented as of this encounter Visit Diagnoses Diagnosis Other malaise and fatigue- Primary documented in this encounter Additional Health Concerns Infection Onset Date Last Indicated Resolved Time R/O COVID-19 11/30/2019 11/30/2019 03/20/2020 11:3 7 AM SYSTEMS DEVELOPER documented as of this encounter Care Teams Stable Cleaner Relationship Specialty Start Date End Date Isidro Swan MD [address] [place] [phone] PCP - General Family Practice 02/17/19 documented as of this encounter
--- OUTSIDE RECORDS SUMMARY | 2025-01-31 12:01 | XMS_ITS | Encounter Summary ---
Author Organization [facility] Address [address] [place] [address] Care Team Providers Care Career Information Specialist Name Role Phone Isidro Swan MD Primary Care Provider [phone] Encounter Details Date Type Department Care Team (Latest Contact Info) Description 05/01/2006 Outpatient Historical [facility] SMOKING PIPE MOUNTER [address] [place] [address] Bryson Wade MD NO ADDRESS ON FILE Routine Medical Exam (Primary Dx); Routine Gynecological Examination Social History Tobacco Use Types Packs/Day Years Used Date Smoking Tobacco: Never Assessed Comments Unknown Sex and Gender Information Value Date Recorded Sex Assigned at Not on file Legal Sex Female 3:02 AM PAN RECLAIM PROCESSOR Gender Identity Not on file Sexual Orientation [...] COVID-19 11/30/2019 11/30/2019 03/20/2020 11:3 7 AM PAN RECLAIM PROCESSOR documented as of this encounter Care Teams Career Information Specialist Relationship Specialty Start Date End Date Isidro Swan MD [address] [place] [phone] PCP - General Family Practice 02/17/19 documented as of this encounter
--- OUTSIDE RECORDS SUMMARY | 2025-01-31 12:02 | XMS_ITS | Clinical Summary ---
Author Organization [facility] [address] Address [address] [place] [address] Care Team Providers Care Resident Hall Director Name Role Phone Isidro Swan MD Primary Care Provider Allergies No known active allergies Active Problems Problem Noted Date Diagnosed Date Hypothyroidism 03/01/2019 Overview (10/03/2020): Historical documentation from [facility] Hypercholesteremia 03/01/2019 Overview (10/03/2020): Historical documentation from [facility] Vitamin D deficiency 03/01/2019 Overview (10/03/2020): Historical documentation from [facility] Panic attacks 03/01/2019 Overview (10/03/2020): Historical documentation from [facility] Obesity (BMI 30.0-34.9) 03/01/2019 Overview (10/03/2020): Historical documentation from [facility] Anxiety and depression 03/01/2019 Overview (10/03/2020): Historical documentation from [facility] 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 Overview (10/03/2020): Historical documentation from [facility] Acute appendicitis 02/13/2009 Immunizations Immunization Administration Dates [...] on file Legal Sex Female 7:43 AM CLOUD ENGAGEMENT PARTNER Gender Identity Not on file Sexual Orientation Not on file Last Filed Vital Signs Vital Sign Reading Time Taken Comments Blood Pressure 130/82 02/17/2019 1:56 PM CLOUD ENGAGEMENT PARTNER Pulse 85 02/17/2019 1:56 PM CLOUD ENGAGEMENT PARTNER Temperature - - Respiratory Rate - - Oxygen Saturation - - Inhaled Oxygen Concentration - - Weight 97.2 kg (214 lb 3.2 oz) 02/17/2019 1:56 P M CLOUD ENGAGEMENT PARTNER Height 161.3 cm (5' 3.5) 02/17/2019 1:56 PM CS T Body Mass Index 37.35 02/17/2019 1:56 PM CLOUD ENGAGEMENT PARTNER Plan of Treatment Health Maintenance Due Date [...] age to complete this topic Care Teams Resident Hall Director Relationship Specialty Start Date End Date Isidro Swan MD [facility] [address] [place] [phone] PCP - General Family Practice 02/17/19
--- OUTSIDE RECORDS SUMMARY | 2025-01-31 12:02 | XMS_ITS | Encounter Summary ---
Author Organization [facility] Address [address] [place] [address] Care Team Providers Care Yardage Estimator Name Role Phone Isidro Swan MD Primary Care Provider [phone] Encounter Details Date Type Department Care Team (Late st Contact Info) Description 11/08/2005 Outpatient Historical [facility] [address] [place] [address] Solo Abrams, CORPORATE PLANNING MANAGER [address] [address] Cellulitis and Abscess of Hand, except Fingers and Thumb (Primary Dx) Social History Tobacco Use Types Packs/Day Years Used Date Smoking Tobacco: Never Assessed Comments Unknown Sex and Gender Information Value Date Recorded Sex Assigned at Not on file Legal Sex Female 3:02 AM TOOLROOM CLERK Gender Identity Not on file Sexual Orientation Not on file documented as of this encounter Plan of Treatment Not on file documented as of this encounter Visit Diagnoses Diagnosis Cellulitis and abscess of hand, except fingers and thumb- Primary documented in this encounter Additional Health Concerns Infection Onset Date Last Indicated Resolved Time R/O COVID-19 11/30/2019 11/30/2019 03/20/2020 11:3 7 AM TOOLROOM CLERK documented as of this encounter Care Teams Yardage Estimator Relationship Specialty Start Date End Date Isidro Swan MD [address] [place] [phone] PCP - General Family Practice 02/17/19 documented as of this encounter
--- OUTSIDE RECORDS SUMMARY | 2025-01-31 12:02 | XMS_ITS | Encounter Summary ---
Author Organization [facility] Address [address] [place] [address] Care Team Providers Care Mud Mixer Name Role Phone Isidro Swan MD Primary Care Provider [phone] Encounter Details Date Type Department Care Team (Late st Contact Info) Description 05/01/2006 Outpatient Historical [facility] Bryson Wade MD NO ADDRESS ON FILE Social History Tobacco Use Types Packs/Day Years Used Date Smoking Tobacco: Never Assessed Comments Unknown Sex and Gender Information Value Date Recorded Sex Assigned at Not on file Legal Sex Female 3:02 AM LABOR RELATIONS ANALYST Gender Identity Not on file Sexual Orientation Not on file documented as of this encounter Plan of Treatment Not on file documented as of this encounter Visit Diagnoses Not on filedocumented in this encounter Additional Health Concerns Infection Onset Date Last Indicated Resolved Time R/O COVID-19 11/30/2019 11/30/2019 03/20/2020 11:3 7 AM LABOR RELATIONS ANALYST documented as of this encounter Care Teams Mud Mixer Relationship Specialty Start Date End Date Isidro Swan MD [facility] [address] [place] [phone] PCP - General Family Practice 02/17/19 documented as of this encounter
--- OUTSIDE RECORDS SUMMARY | 2025-01-31 12:02 | XMS_ITS | Encounter Summary ---
Author Organization [facility] Address [address] [place] [address] Care Team Providers Care Hose Builder Name Role Phone Isidro Swan MD Primary Care Provider [phone] Encounter Details Date Type Department Care Team (Late st Contact Info) Description 12/11/2005 Outpatient Historical [facility] [address] [place] [address] Og Rodriguez, [address] [place] [address] Depressive Disorder, not Elsewhere Classified (Primary Dx); Unspecified Iron Deficiency Anemia Social History Tobacco Use Types Packs/Day Years Used Date Smoking Tobacco: Never Assessed Comments Unknown Sex and Gender Information Value Date Recorded Sex Assigned at Not on file Legal Sex Female 3:02 AM BELT SANDER STONE Gender Identity Not on file Sexual Orientation Not on file documented as of this encounter Plan of Treatment Not on file documented as of this encounter Visit Diagnoses Diagnosis Depressive disorder, not elsewhere classified- Primary Iron deficiency anemia, unspecified documented in this encounter Additional Health Concerns Infection Onset Date Last Indicated Resolved Time R/O COVID-19 11/30/2019 11/30/2019 03/20/2020 11:3 7 AM BELT SANDER STONE documented as of this encounter Care Teams Hose Builder Relationship Specialty Start Date End Date Isidro Swan MD [address] [place] [phone] PCP - General Family Practice 02/17/19 documented as of this encounter
--- OUTSIDE RECORDS SUMMARY | 2025-01-31 12:02 | XMS_ITS | Encounter Summary ---
Author Organization [facility] Address [address] [place] [address] Care Team Providers Care Software Tools Developer Name Role Phone Isidro Swan MD Primary Care Provider [phone] Encounter Details Date Type Department Care Team (Latest Contact Info) Description 03/12/2005 Outpatient Historical [facility] [address] [place] [address] Bryson Wade MD NO ADDRESS ON FILE Routine medical exam (Primary Dx); SCREENING MAL NEOP-CERVIX Social History Tobacco Use Types Packs/Day Years Used Date Smoking Tobacco: Never Assessed Comments Unknown Sex and Gender Information Value Date Recorded Sex Assigned at Not on file Legal Sex Female 3:02 AM HOSPITAL STAFF PHARMACIST Gender Identity Not on file Sexual Orientation [...] COVID-19 11/30/2019 11/30/2019 03/20/2020 11:3 7 AM HOSPITAL STAFF PHARMACIST documented as of this encounter Care Teams Software Tools Developer Relationship Specialty Start Date End Date Isidro Swan MD [facility] [address] [place] [phone] PCP - General Family Practice 02/17/19 documented as of this encounter
== END 2025-01-31 10:27 | disposition home or self-care (01) ==
PROVIDERS: Visit Provider Internal Medicine Gastroenterology
DX: Z12.11 Encounter for screening for malignant neoplasm of colon (principal); K63.5 Polyp of colon
CPT/HCPCS: 88305